=== PATIENT | male | born 1985 ===

== ENCOUNTER → 2022-05-19 | Outpatient (CLI) | payer MEDICAID ==
[2022-05-19 08:25] VITALS: BP 141/84; PULSE 77; RESP 18; TEMP 98.1
--- NOTE | 2022-05-19 14:41 | P.PAINPG ---
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 Pt states pain level is provoked at 9/10 in intensity, constant, localized in the lower lumbar spine, burning, stinging in character w shooting pain towards the BLEs, L>R numbness. Pain is provoked by over activity. Pain is alleviated by PT x 4 wks which he is currently in, chiropractic treatments semi weekly x 1 yr which ended in winter 2021, heat & ice (at PT) which provoked pain, medications (Ibu, Robaxin), topical, sitting, repositioning and rest. PMH: OA, Obesity PSH: Denies SH: Hx of tobacco use, Occasional ETOH use, No illicit drug use. Employed. FH: DM, CAD All: See list Meds: See list REVIEW OF ORGAN SYSTEMS: CONSTITUTIONAL: No fevers or chills. No recent weight loss. NEUROLOGICAL: + numbness and tingling along the distal extremities. No seizure disorders or headaches. MUSCULOSKELETAL: + pain PSYCHIATRIC: Denies current depression or suicidal thoughts. Physical Examinations : Constitutional : Cooperative , not in acute distress . Neurologic : Cranial nerve II to XII intact. No focal neurological deficits. Psychiatric : alert & oriented x 3. Matching mood & appropriate affect. Judgment & insight intact. Musculoskeletal : Cervical Spine Motor strength in the deltoid and biceps: Normal right side. Normal Left side Motor strength biceps and the wrist extensors: Normal right side . Normal left side Motor strength in the triceps muscle: Normal right side. Normal left side Deep tendon reflexes: Normal at the biceps. Normal at Brachioradialis. Normal at triceps Vertebral body tenderness to deep palpation over Cervical facet loading test: positive bilaterally Spurling test: positive bilaterally Neck distraction test: positive bilaterally Obdulio sign: positive bilaterally Lumbar spine Motor strength lower extremities ,thigh and legs 5/5 Right side , 5/5 Left side Deep tendon reflexes : Normal Knee Jerk. Normal Ankle Jerk Vertebral body tenderness over L4 Lumbar facet Loading Test: positive Right / positive Left Range of motion of the lumbar spine Flexion 30 degrees, extension 10 degrees Straight Leg Raise test: Left/ Right positive at degree Ruth Ann test: positive right / positive left. Severe tenderness over the Sacroiliac joint on the Right / Left sides Gaenslen test: positive bilaterally Seated flexion test: positive bilaterally. Sacral spine : Severe tenderness over the Sacroiliac joint: right side / left side Range of motion: Flexion of the lumbar spine <60 degrees Range of motion: Extension of the lumbar spine <20 degrees Gaenslen's Test positive Naun's Test positive Ruth Ann test: positive right side / l eft side Thigh Thrust Test Sacral Thrust Test Imaging: MRI without contrast of the lumbar spine from 04/11/22 reviewed Assessment/ Plan : Lumbar DDD Recommendation of KORY TFESI L3-L4 #1. Risks, benefits of procedure discussed and patient verbalized understanding. Admits to aspirin or anti- coagulant use or medical history of diabetes. Protocol for discontinuation/ continuation of medications jayy procedure discussed. All questions answered. I have spent greater than 30 minutes on patient care today. Dr Dumas was available by phone for the evaluation of this patient. The time was used to review the medical records including relevant urine studies and Prescription history (MAPs), review of the available imaging, evaluation and examination of the patient, coordination of care with the medical staff and if applicable referring physicians, as well as creation of the medical record Controlled Substance Measures - Controlled Substance Measures Is patient prescribed a controlled substance at discharge?: No
== END ==
LOC: PNWHC3 06:59
PROVIDERS: ATTEND Specialist
DX: M51.16 Intervertebral disc disorders with radiculopathy, lumbar region (principal); M48.061 Spinal stenosis, lumbar region without neurogenic claudication; M19.90 Unspecified osteoarthritis, unspecified site; E66.9 Obesity, unspecified
CPT/HCPCS: 99211

== ENCOUNTER 2022-06-14 06:21 | Day surgery (SDC) | payer MEDICAID ==
[2022-06-10 15:49] VITALS: BMI 45.9
[~2022-06-14 06:21] MED LIST: LACTATED RINGERS 1,000 ML IV SCH
[2022-06-14] MEDS ORDERED: IOPAMIDOL M200 10 ML VIAL ONE (07:20)
[2022-06-14] MEDS ORDERED: DEXAMETHASONE SOD PHOSPHATE 10 MG/ML 1 ML VIAL ONE (07:20)
[2022-06-14 07:57] VITALS: RESP 16
--- NOTE | 2022-06-14 07:57 | P.PCN ---
Date of Procedure: 06/14/22 Preoperative Diagnosis: Lumbar neuroforaminal stenosis and lumbar radiculopathy Postoperative Diagnosis: Lumbar neural foraminal stenosis and lumbar radiculopathy Procedure(s) Performed: 1 right lumbar transforaminal epidural steroid injection at the L5-S1 level under fluoroscopic guidance 12 left lumbar transforaminal epidural steroid injection at the L3 4 level under fluoroscopic guidance Anesthesia: local Surgeon: Melissa Cortez Pathology: none sent Condition: stable Disposition: PACU Description of Procedure: The patient was seen and identified in the preoperative area. Risks, benefits, complications, and alternatives were discussed with the patient. The patient agreed to proceed with the procedure and signed the consent. IV was started, and vital signs were stable. Patient was taken to the OR and time out was completed. The patient was placed in the prone position on procedure table and a pillow was placed under the abdomen to reduce lumbar lordosis. The lumbosacral area was prepped and draped in the usual sterile fashion. Critical pause was taken. Vital signs were closely monitored during the procedure. Conscious sedation was used during the procedure to decrease patients anxiety. Lidocaine 1% was used to numb the skin up at the target points that were chosen as follows: For the L5-S1 level the target point was at the 6 o'clock position of L-5 pedicle in the Rt oblique view. The correct view was obtained by squaring off the L5 vertebra on the AP view of fluoroscopy then the C-arm was tilted to the Rt oblique position to an angle at which the superior articular process of the lower vertebra would point to the middle of the pedicle above it at the 6 o'clock position as mentioned above . Then I used 5 inch 22-gauge Quincke spinal needle to get to the target point mentioned above by touching the inferior edge of the L5 pedicle and then walking off the bone and into the superior part of the L5-S1 foramen using the lateral view of fluoroscopy. I then injected 1 mL of Isovue contrast dye which showed typical epidurogram around the L5 nerve root and into the epidural space. Then I injected 1 mL of lidocaine 1% +7.5 mg of Decadron. For the left L3 4 transforaminal epidural steroid injection that target point was at the 6 o'clock position of the L3 pedicle and using 5 inch 22-gauge spinal needle and the needle tip was placed at the target points using the above technique and then 1 mL of Isovue was given which showed delineation of the left L3 nerve root after that I injected 1 mL of lidocaine 1% +7.5 mg of Decadron. The patient had brief radicular pain when I'm doing the left L3 4 level and became vasovagal with heartrate down to mid 30s however he did well afterwards with no need for treatment. Patient tolerated procedure well,and was transferred to PACU in stable condition. The procedure and repeated next time at the L4 5 level bilaterally under fluoroscopic guidance. A copy of the needle placement picture was saved to the fluoroscopy machine. Sedation time:0165-8513
[2022-06-14 08:17] VITALS: BP 114/78; PULSE 69
--- NOTE | 2022-06-14 08:28 | FL ---
EXAMINATION TYPE: FL guided pain mgmt statistic DATE OF EXAM: 06/14/2022 HISTORY: Fluoroscopy time Total dose area product (DAP) in uGy*m?, (or similar): 0.93073 IMPRESSION: 1. Fluoroscopy time.
== END 2022-06-14 08:46 | disposition home or self-care (01) ==
LOC: ORPAIN 06:21
PROVIDERS: ATTEND Anesthesiology
DX: M48.061 Spinal stenosis, lumbar region without neurogenic claudication (principal); E66.01 Morbid (severe) obesity due to excess calories; Z68.1 Body mass index [BMI] 19.9 or less, adult
CPT/HCPCS: 64484; 64483; 99152; J1100; Q9966

== ENCOUNTER → 2022-07-14 | Outpatient (CLI) | payer MEDICAID ==
[2022-07-14 08:22] VITALS: BP 134/90; PULSE 68; RESP 18; TEMP 98.2
--- NOTE | 2022-07-14 14:28 | P.PAINPG ---
PQRS Measure Charge Sheet Comment: A 36 yr old male with a history of severe and chronic LBP secondary to lumbar DDD and spondylosis with facet arthropathy without myelopathy presents today for evaluation s/p L TFESI L3-L4 & R TFESI L5-S1. Pt states he experienced 80 % pain relief x 4 wks s/p procedure. Pain level is provoked at 0 /10 in intensity. Pt has no provocative factors. Pain is alleviated with injections. Interventional pain procedures completed include L TFESI L3-L4, R TFESI L5-S1 Patient is currently on DENIES Patient denies any side effects of the medication(s), denies excessive drowsiness or sleepiness, denies suicidal ideation and reports that the current pain medication is helping to control the pain and improve activities of daily living. Patient denies any motor or sensory deficits. Patient denies any fever or night sweats, denies any change in the bowel movements or urination. Physical Examination: -Constitutional: Cooperative. Not in acute distress . - Neurologic: Cranial nerve II to XII intact. No focal neurological deficits. - Psychatric: Alert & oriented x 3. Matching mood & appropriate affect. Judgme nt and insight intact. - Musculoskeletal: Cervical spine: Muscle bulk/ tone/ strength in the bilateral upper extremities normal Vertebral body tenderness to palpation over Spurling test positive Distraction test positive Facet loading test positive TTP Thoracic spine Muscle bulk / tone/ strength in the bilateral paraspinal muscles normal Vertebral body tender to palpation over Facet loading test positive TTP Lumbar spine: Motor bulk/ tone/ strength lower extremities , thigh and legs : 5/5 Deep tendon reflexes : Normal Knee Jerk. Normal Ankle Jerk . Vertebral body tenderness to palpation over Jeff Test positive Lumbar Facet Loading Test positive Straight Leg Raise: positive at 30 degrees right side/ left side Gaenslen's Test positive Sacral spine : Severe tenderness over the Sacroiliac joint: right side / left side Range of motion: Flexion of the lumbar spine <60 degrees Range of motion: Extension of the lumbar spine <20 degrees Gaenslen's Test positive right side / left side Ruth Ann test: positive right side / left side Thigh Thrust Test positive right side / left side Sacral Thrust Test positive right side / left side Assessment and plan: Chronic LBP secondary to lumbar DDD, spondylosis with facet arthropathy without myelopathy Will manage his pain on his own at this point and will follow up as needed. All questions answered. I have spent less than 30 minutes on patient care today. Dr Dumas was available by phone for the evaluation of this patient. The time was used to review the medical records including relevant urine studies and Prescription history (MAPs), review of the available imaging, evaluation and examination of the patient, coordination of care with the medical staff and if applicable referring physicians, as well as creation of the medical record PQRS Narrative: Hx Alcohol Use (MH) Yes: SOCIAL Home Medications: Ambulatory Orders Cyclobenzaprine [Flexeril] 5 mg PO TID 06/10/22 Ibuprofen [Motrin Ib] 400 mg PO Q8H PRN 06/10/22 Meloxicam [Mobic] 15 mg PO DAILY 06/10/22 Controlled Substance Measures - Controlled Substance Measures Is patient prescribed a controlled substance at discharge?: No
== END ==
LOC: PNWHC3 07:35
PROVIDERS: ATTEND Specialist
DX: M51.36 Other intervertebral disc degeneration, lumbar region (principal); M50.321 Other cervical disc degeneration at C4-C5 level; M47.816 Spondylosis without myelopathy or radiculopathy, lumbar region; G89.29 Other chronic pain
CPT/HCPCS: 99211

== ENCOUNTER → 2024-06-12 | Outpatient (CLI) | payer MEDICAID ==
[2024-06-12 10:54] LABS: Prostate Specific Antigen 0.36 ng/mL (0.000-2.500)
[2024-06-12 15:22] LABS: Basophils # (A) 0.03 X 10*3/uL (0.00-0.10); Basophils % (A) 0.3 %; Eosinophils # (A) 0.14 X 10*3/uL (0.04-0.35); Eosinophils % (A) 1.6 %; HCT 43.2 % (39.6-50.0); HGB 14.3 g/dL (13.0-17.0); Lymphocytes # (A) 2.54 X 10*3/uL (0.90-5.00); Lymphocytes % (A) 28.4 %; MCHC 33.1 g/dL (32.0-37.0); MCV 84.7 FL (80.0-97.0); Mean Platelet Volume 9.3 FL (9.5-12.2); Monocytes # (A) 0.63 X 10*3/uL (0.20-1.00); NRBC Per 100 WBC 0 X 10*3/uL (0.00-0.01); Neutrophils # (A) 5.56 X 10*3/uL (1.80-7.70); Neutrophils % (A) 62.3 %; Platelet Count 247 X 10*3/uL (140-440); WBC 8.94 X 10*3/uL (4.50-10.00)
== END | disposition home or self-care (01) ==
LOC: LABWHC1 07:54
PROVIDERS: ATTEND Family Medicine
DX: E29.1 Testicular hypofunction (principal)
CPT/HCPCS: 36415; 84153; 84402; 84403; 85025